=== PATIENT | female | born 1970 | race Caucasian/White ===

== ENCOUNTER 2023-11-21 19:22 | Inpatient (IN) | payer OTHER, SELFPAY ==
--- NOTE | ~2023-11-21 | XR_ITS ---
EXAMINATION: XR CHEST CLINICAL INFORMATION: Shortness of breath and cough COMPARISON: None available. TECHNIQUE: Frontal view of the chest was obtained. FINDINGS: No significant abnormality is noted involving the heart, lungs, mediastinum, bony thorax or soft tissues. XR/XR chest 1V IMPRESSION: Unremarkable examination. Electronically signed by: Lewis Johnson MD 11/21/2023 09:39 PM EDT RP
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
--- NOTE | 2023-11-21 19:37 | ECG_ITS ---
Test Reason : SOB Blood Pressure : / mmHG Vent. Rate : 091 BPM Atrial Rate : 091 BPM P-R Int : 140 ms QRS Dur : 072 ms QT Int : 360 ms P-R-T Axes : 073 037 041 degrees QTc Int : 442 ms Normal sinus rhythm Possible Left atrial enlargement Borderline ECG No previous ECGs available Referred By: Juhi Gamez Electronically Signed By:AIMEE VEGA
[2023-11-21 19:39] VITALS: BP 120/69; PULSE 93; RESP 20; TEMP 36.6; O2SAT 99; BMI 26.1
[2023-11-21 20:03] LABS: MANUAL DIFF FLAG NO
[2023-11-21 20:07] LABS: Basophils Absolute Auto 0.1 X10*3/uL (0.0-0.2); Basophils Percent Auto 0.5 % (0-2); Eosinophils Percent Auto 0.2 % (0-4); Hematocrit 42.5 % (37.0-47.0); Hemoglobin 12.9 g/dl (12.0-16.0); Imm Gran Abs Auto 0.11 X10*3/uL (0.00-0.03); Imm Gran Pct Auto 0.9 % (0.0-0.4); Lymphocytes Absolute Auto 1.9 X10*3/uL (1.2-4.9); Lymphocytes Percent Auto 15.7 % (20-40); Mean Corpuscular HGB Conc 30.4 g/dl (31.0-35.0); Mean Corpuscular Hemoglobin 26.3 pg (27.0-33.0); Mean Corpuscular Volume 86.6 fL (80.0-98.0); Mean Platelet Volume 9.9 fL (9.4-12.3); Monocytes Absolute Auto 0.6 X10*3/uL (0.1-1.2); Monocytes Percent Auto 5.1 % (2-11); Neutrophils Absolute Auto 9.5 x10*3/uL (2.0-8.3); Neutrophils Percent Auto 77.6 % (45-73); Platelet Count 439 X10*3/uL (160-400); Red Blood Count 4.91 X10*6/uL (4.20-5.50); White Blood Count 12.3 X10*3/uL (4.8-10.8)
[2023-11-21 20:10] LABS: VBG Base Excess -22.1 mmol/L; VBG HCO3 5 mmol/L (22-26); VBG pCO2 14 mmHg; VBG pH 7.11 (7.32-7.43); VBG pO2 87 mmHg
[2023-11-21 20:10] LABS: Venous Blood Gas Refer to POC result
[2023-11-21 20:16] LABS: INTERNATIONAL NORM RATIO 0.8 (0.9-1.1); Prothrombin Time 10.3 SEC (11.1-13.3)
[2023-11-21 20:20] VITALS: PULSE 110; RESP 34; O2SAT 98
[2023-11-21] MEDS: Lactated Ringers 1,000 ML 999 ML IV ×2 (20:20)
[2023-11-21] MEDS: ondansetron HCL 4 MG/2 ML VIAL IVPUSH (20:28)
[2023-11-21 20:33] LABS: Alanine Aminotransferase 46 U/L (0-31); Albumin Level 4.2 g/dL (3.5-5.0); Alkaline Phosphatase 252 U/L (39-117); Anion Gap 28 (12-20); Aspartate Amino Transferase 27 U/L (5-31); Bilirubin Total 0.5 mg/dL (0.0-1.0); Blood Urea Nitrogen 19 mg/dL (9-16); Calcium 9.7 mg/dL (8.4-10.2); Carbon Dioxide 5 mmol/L (22-29); Chloride 100 mmol/L (96-108); Creatinine Clr Calc Pharmacy 49.3; Estimated Glomerular Filt Rate 43; Glucose Random 691 mg/dL (60-115); Lipase 10 U/L (8-78); Potassium 5.8 mmol/L (3.3-5.1); Sodium 127 mmol/L (135-145); Total Protein 8.5 g/dL (6.5-8.0)
[2023-11-21 20:38] LABS: Beta-Hydroxybutyrate 9.02 mmol/L (0.02-0.27)
[2023-11-21] MEDS: Insulin Regular, Human 100 UNIT/ML 10 ML VIAL 10 UNIT IVPUSH (20:40)
[2023-11-21 20:43] LABS: Influenza A PCR NEGATIVE (Negative); Influenza B PCR NEGATIVE (Negative); Resp Syncy Virus RNA Qual PCR NEGATIVE (Negative); SARS COV2 PCR INHOUSE NEGATIVE (Negative)
[2023-11-21] MEDS: Insulin Regular/NS 100 UNIT/100 ML PLAST..BAG 6 UNIT IVCONT (20:46)
--- NOTE | 2023-11-21 20:55 | PC.NURSE ---
pt arrived via [facility] reporting feeling unwell since waking up this morning, states she can tell her sugars were off , presenting with sob, increased work of breathing w/ shallow respirations, diaphoretic, very uncomfortable appearing. Pt states she has short acting ss insulin before meals, along with long acting 2x/day that she is compliant with. today her sugars were high despite giving self insulin and only eating 1 egg. labs revealing pt is in DKA, pH 7.11, carbon dioxide 5, glucose 691, potassium 5.8. #22 g iv in LFA, #20g iv LAC, 2L LR bolus running, 4 mg zofran for vomiting, 10units insulin regular iv push administered, and insulin drip started at 18:46 @7u/hr per ICU LISSETTE gar. pt on monitoring manager blood cultures and lactic being obtained now by PCT
[2023-11-21 20:57] LABS: Glucose, Whole Blood > 600 mg/dL (60-115)
[2023-11-21 20:57] LABS: Glucose, Whole Blood > 600 mg/dL (60-115)
--- NOTE | 2023-11-21 21:17 | PM.CCHP ---
History of Present Illness Date of Service: 11/21/23 Attending physician on admission: Roberto Carlos Gutiérrez Chief Complaint: DKA HPI: ?53-year-old female with underlying history of breast cancer status post bilateral lumpectomy in 1999, Graves disease, type I DM with recurrent DKA episodes approximately once every 2-3 months with unknown reasons of it.? Patient states that she is compliant with medication but often times her blood sugars will go out of order despite of her using her Lantus twice per day as well as an ISS. Patient presented to the emergency room with generalized malaise, nausea and a few episodes of vomiting with the epigastric abdominal discomfort which is often the same way that he presents when her sugars are abnormal.? Pain is described as dull and nagging 5/10, localized without radiation, she has not take any medications to help but and nothing makes it better or worse. ?In fact she check her sugar at home and was very high unreadable therefore she came to the emergency room. She denies any shortness of breath, cough, sputum production, fever, chills, dysuria, hematuria, diarrhea, recent traveling or COVID contacts. ER workup revealed tachycardia and tachypnea but otherwise normotensive and not hypoxic, afebrile, her lab work shows white count 12.3, H and H of 12.9 and 42 respectively, platelets 439, sodium 127, potassium 5.8, chloride 100, carbon dioxide 5, anion gap 28, BUN 19, creatinine 1.29, random glucose 691, beta hydroxybutyrate acid 9.02.? SAT and ALT 27 and 46 respectively, lipase 10.? Respiratory panel negative.? Urinalysis and chest x-ray are pending.? Patient has been given 2 L of IV fluids, a single IV bolus of insulin and is about to start insulin drip. Patient will be transferred to the ICU for further management. Review of Systems Review of Systems: Review of systems: As above, otherwise the patient denies any prior history of strokes, migraine headaches, head trauma, no eyes, ears or nose problems, no problems swallowing or with phonation, denies any history of chest pain, palpitations, coronary disease, cough, sputum production, pneumonia, bronchitis, COPD or emphysema, kidney stones, liver problems, no history of DVT or PE, leg edema, fractures or extremity surgeries all other review of systems were reviewed and they were all negative. [facility] Social History Social History Household Members: None Housing: House Do you presently have visiting nurse or other home services: No Patient Tobacco Use Status: Current everyday Tobacco user Tobacco use type: Cigarette Smoked in Last 30 Days: Yes Patient Interested in Nicotine Replacement: Yes Patient Given Instructions on How to Stop Smoking: No (Refused) Use of substances other than those prescribed or required for medical reasons: No Currently Displaying Signs/Symptoms of Drug Intoxication Withdrawal: No Have you been hit, kicked, punched, or otherwise hurt by someone within the past year? If so, by whom?: No Do you feel safe in your current relationship?: No Current Relationship Jainism Healthcare Practices: Hindu Advance Directives: No Advance Directives Information Provided: Yes Do you have a plan to hurt others: No Plan Recently lost weight without trying: No Nutrition Risks: Diabetes new onset/Uncontrolled Patient : No Travel History Ebola Risk: Travel/Contact With Anyone From Affected Area/s: No Meds Allergies Allergy/AdvReac Type Severity Reaction Status Date / Time aspirin Allergy Vomiting Verified 11/21/23 19:40 Active Medications: Current Medications Enoxaparin Sodium (Enoxaparin Sodium 40 Mg/0.4 Ml Syringe) 40 mg SUBCUT DAILY [facility] Insulin Human Regular (Myxredlin) 100 unit in 100 mls @ 6 mls/hr IVCONT .[id number] [facility]; Protocol Last Admin: 11/21/23 20:46 Dose: 6 unit/hr, 6 mls/hr Dextrose (D10) 250 mls @ 750 mls/hr IV Q30M PRN PRN Reason: BG <70 Lactated Ringer's (Lr) 1,000 mls @ 150 mls/hr IVCONT .Q6H40M [facility] Pantoprazole Sodium (Pantoprazole Sodium 40 Mg/10 Ml Vial) 40 mg IVPUSH DAILY [facility] Home Medications ?Medication ?Instructions ?Recorded ?Confirmed ?Last Taken ?Type insulin aspart U-100 100 unit/mL 0 - 18 sliding scale dose subcut 11/22/23 11/22/23 11/22/23 History (3 mL) subcutaneous pen (Novolog QID PRN suger FlexPen U-100 Insulin aspart) insulin glargine 100 unit/mL (3 22 unit subcut BID 11/22/23 11/22/23 Unknown History mL) subcutaneous pen (Lantus Solostar U-100 Insulin) letrozole 2.5 mg tablet 2.5 mg PO DAILY 11/22/23 11/22/23 11/22/23 History methimazole 10 mg tablet 20 mg PO BID 11/22/23 11/22/23 11/21/23 History omeprazole 20 mg capsule,delayed 20 mg PO DAILY@0630 11/22/23 11/22/23 11/21/23 History release propranolol 40 mg tablet 20 mg PO TID 11/22/23 11/22/23 11/22/23 History Physical Exam Vital Signs: Vital Signs: Last Vital Signs Temp 98 F 11/21/23 19:39 Pulse 110 H 11/21/23 20:20 Resp 34 H 11/21/23 20:20 BP 120/69 11/21/23 19:39 Pulse Ox 98 11/21/23 20:20 O2 Del Method Room Air 11/21/23 20:20 BMI result Body Mass Index 26.1 VS: ?120/69, 110, 34, 98% on room air, temperature 98.0 degrees F. General:? Alert oriented x3 no acute distress.? Speaking full sentences.? Speech is well articulated, thought process is coherent.? Following all commands. Skin:? Intact, no lesions, edema, erythema, clubbing or cyanosis.? No ulcers. HEENT:? Head is normocephalic, atraumatic, pupils equal round reactive to light .Buccal mucosa is dry, Neck is supple without lymphadenopathy. Cardiac:? Tachycardic 110 beats per minute.? No murmurs, rubs, gallops. Pulmonary:? Clear to auscultation, no wheezes, rales or rhonchi. Abdomen:? Protuberant, positive bowel sounds in all 4 quadrants.? Soft, nontender, no rebound or guarding.? Musculoskeletal:? Moving all 4 extremities upon request a major joints, there is no crepitus or tenderness.? The strength is 5/5 bilaterally and throughout all 4 extremities.? There is no leg edema , no calf tenderness , no leg asymmetry.? Gait not assessed at this point. Neurologic:? As above. No focal deficits noted. Vascular:? 2+ pulses upper and lower extremities distally. Results Labs 11/22/23 05:13 11/22/23 10:40 Labs: Laboratory Results - last 24 hr 11/21/23 11/21/23 11/21/23 19:36 19:38 19:52 MCV 86.6 MCH 26.3 L MCHC 30.4 L RDW 17.0 H Plt Count 439 H MPV 9.9 Immature Gran % (Auto) 0.9 H Neut % (Auto) 77.6 H Lymph % (Auto) 15.7 L Hancock % (Auto) 5.1 Eos % (Auto) 0.2 Baso % (Auto) 0.5 Lymph # (Auto) 1.9 Hancock # (Auto) 0.6 Eos # (Auto) 0.0 Baso # (Auto) 0.1 Abs Immat Gran (auto) 0.11 H Absolute Neuts (auto) 9.5 H Absolute Nucleated RBC 0.000 Nucleated RBC % (auto) 0.0 PT 10.3 L INR 0.8 L VBG pH VBG pCO2 VBG pO2 VBG HCO3 VBG O2 Saturation VBG Base Excess Anion Gap 28 H Estim Creat Clear Calc 49.3 Estimated GFR 43 POC Glucose > 600 H* > 600 H* Random Glucose 691 H* Lactic Acid 1.0 Calcium 9.7 Magnesium 2.0 Total Bilirubin 0.5 AST 27 ALT 46 H Alkaline Phosphatase 252 H Total Protein 8.5 H Albumin 4.2 Lipase 10 Beta-Hydroxybutyrate 9.02 H Influenza Type A (PCR) NEGATIVE Influenza Type B (PCR) NEGATIVE RSV RNA Qual (PCR) NEGATIVE SARS-CoV-2 RNA (RT-PCR) NEGATIVE 11/21/23 20:03 MCV MCH MCHC RDW Plt Count MPV Immature Gran % (Auto) Neut % (Auto) Lymph % (Auto) Hancock % (Auto) Eos % (Auto) Baso % (Auto) Lymph # (Auto) Hancock # (Auto) Eos # (Auto) Baso # (Auto) Abs Immat Gran (auto) Absolute Neuts (auto) Absolute Nucleated RBC Nucleated RBC % (auto) PT INR VBG pH 7.11 L* VBG pCO2 14 VBG pO2 87 VBG HCO3 5 L VBG O2 Saturation 93.0 VBG Base Excess -22.1 Anion Gap Estim Creat Clear Calc Estimated GFR POC Glucose Random Glucose Lactic Acid Calcium Magnesium Total Bilirubin AST ALT Alkaline Phosphatase Total Protein Albumin Lipase Beta-Hydroxybutyrate Influenza Type A (PCR) Influenza Type B (PCR) RSV RNA Qual (PCR) SARS-CoV-2 RNA (RT-PCR) ECG Attestation: I personally reviewed and interpreted this ECG as follows: (EKG interpretation to my view shows sinus rhythm rate of 91 beats per minute. There is no ST elevations, no ST depressions. QTC 442 MS. No comparison available.) Imaging Comment: Chest x-ray impression To my view there is no bony abnormalities.? Trachea is midline.? Cardiac silhouette appears normal.? Both diaphragmatic angles are visualized without evidence of effusion, no infiltrates.? Final reading by radiologist is pending. Assessment and Plan (1) Diabetic keto-acidosis: Qualifiers: Diabetes mellitus complication detail: without coma Diabetes mellitus type: type 1 Qualified Code(s): E10.10 - Type 1 diabetes mellitus with ketoacidosis without coma Status: Acute Plan ASSESSMENT : 1. Acute DKA 2. Acute metabolic acidosis due to the above 3. Pseudo hyponatremia 4. Pseudo hyperkalemia 5. Reactive tachycardia and tachypnea 6. Reactive thrombocytosis 7. Clinical dehydration PLAN OF CARE: Patient will be transferred to the ICU, monitor I's and O's, vital signs, continue with insulin drip at 0.1 units/kilogram per hour, adjust insulin according to blood sugars, continue with LR infusion, change IV fluids to D5 LR when blood sugars less than 250, check POC is every 1 hour, chemistries every 4 hours and replace electrolytes as needed particularly potassium.? Repeat laboratories in the morning.? As soon as the gap closes, we will discontinue the insulin drip and proceed to place her on her regular long-acting insulin. GI PROPHYLAXIS: ?IV PPI DVT PROPHYLAXIS: ?Lovenox subQ Critical care time used for critical evaluation of this patient, diagnosis, treatment and coordination of care, review her records and documentation TOTAL CRITICAL CARE TIME?75?MIN . discussion and coordination with consultants, completely separate from any procedures performed. Patient's care was discussed in detail with Dr. Gutiérrez who is aware of all the above as well as the plan of care for this patient.
[2023-11-21 21:44] LABS: Appearance Urine Clear; Color Urine Yellow; Glucose Urine UA >=1000 mg/dL (Negative); Leukocyte Esterase Urine Negative (Negative); Nitrite Urine Negative (Negative); PH 5.5 (5.0-9.0); Specific Gravity - Urine 1.025 (1.005-1.025); UMIC TRIGGER UACC YES; Urine Blood Negative (Negative); Urine Ketones >=160 mg/dL (Negative); Urine Protein 30 (1+) mg/dL (Neg-Trace)
[2023-11-21 21:49] LABS: Bacteria Urine None Seen (None Seen); RBC Urine 0-2 /HPF (0-2); Squamous Epithelial Cell Urine 0-2 /HPF (0-2); WBC Urine 0-5 /HPF (0-5)
[2023-11-21 21:53] LABS: Glucose, Whole Blood 492 mg/dL (60-115)
[2023-11-21 22:04] VITALS: BP 137/69; PULSE 91; RESP 18; TEMP 36.6; O2SAT 100
[2023-11-21 22:11] LABS: Anion Gap 25 (12-20); Blood Urea Nitrogen 18 mg/dL (9-16); Calcium 9.7 mg/dL (8.4-10.2); Carbon Dioxide 7 mmol/L (22-29); Chloride 105 mmol/L (96-108); Creatinine Clr Calc Pharmacy 53.9; Estimated Glomerular Filt Rate 48; Glucose Random 543 mg/dL (60-115); Potassium 5.5 mmol/L (3.3-5.1); Sodium 131 mmol/L (135-145)
--- NOTE | 2023-11-21 22:11 | PC.NURSE ---
per insulin drip protocol repeat poc after 1 hr of infusion came back at 492 drop was > 100 within 1 hr and therefore supposed to reduce infusion rate by 50% however per ED MD continue running at 7ml/hr until glucose is under 200 - also verified with Jeovany MCLAUGHLIN and APPRENTICE CARPENTER when giving report on phone insulin drip continues at 7u/hr pt to go to ICU momentarily
[2023-11-21 22:43] VITALS: TEMP 36.5
[2023-11-21 22:44] LABS: Glucose, Whole Blood 485 mg/dL (60-115)
[2023-11-21 23:00] VITALS: BP 153/73; PULSE 97; RESP 19; O2SAT 100
[2023-11-21 23:08] LABS: Glucose, Whole Blood 492 mg/dL (60-115)
[2023-11-21 23:20] VITALS: BMI 26.5
[2023-11-21] MEDS: Lactated Ringers 1,000 ML 150 ML IVCONT (23:48)
[2023-11-21 23:53] LABS: Glucose, Whole Blood 379 mg/dL (60-115)
[2023-11-22] VITALS (16 sets, daily range): BP systolic 100–137; BP diastolic 59–79; PULSE 72–95; RESP 14–19; TEMP 36.1–36.9; O2SAT 96–99
--- NOTE | 2023-11-22 00:41 | PC.NURSE ---
PER ICU PA TO START D5LR WHEN GLUCOSE <250
[2023-11-22] MEDS: Sodium Bicarbonate 8.4% 50 MEQ/50 ML SYRINGE IVPUSH ×2 (00:51→06:37)
[2023-11-22 00:58] LABS: Alanine Aminotransferase 45 U/L (0-31); Albumin Level 3.8 g/dL (3.5-5.0); Alkaline Phosphatase 231 U/L (39-117); Anion Gap 23 (12-20); Aspartate Amino Transferase 30 U/L (5-31); Bilirubin Total 0.3 mg/dL (0.0-1.0); Blood Urea Nitrogen 16 mg/dL (9-16); Calcium 9.1 mg/dL (8.4-10.2); Carbon Dioxide 7 mmol/L (22-29); Chloride 110 mmol/L (96-108); Estimated Glomerular Filt Rate 46; Glucose Random 301 mg/dL (60-115); Potassium 4.7 mmol/L (3.3-5.1); Sodium 135 mmol/L (135-145); Total Protein 7.4 g/dL (6.5-8.0)
[2023-11-22] MEDS: Dextrose 5 % and Lactated Ring 1,000 ML 100 ML IVCONT (00:58)
[2023-11-22 01:27] LABS: Glucose, Whole Blood 191 mg/dL (60-115)
[2023-11-22 01:50] LABS: Glucose, Whole Blood 173 mg/dL (60-115)
[2023-11-22 02:55] LABS: Glucose, Whole Blood 142 mg/dL (60-115)
[2023-11-22 03:56] LABS: Glucose, Whole Blood 122 mg/dL (60-115)
[2023-11-22 04:57] LABS: Glucose, Whole Blood 117 mg/dL (60-115)
[2023-11-22 05:22] LABS: VBG Base Excess -11.6 mmol/L; VBG HCO3 11 mmol/L (22-26); VBG pCO2 19 mmHg; VBG pH 7.36 (7.32-7.43); VBG pO2 50 mmHg
[2023-11-22 05:24] LABS: Venous Blood Gas Refer to POC result
[2023-11-22 05:41] LABS: MANUAL DIFF FLAG NO
[2023-11-22 05:43] LABS: Basophils Absolute Auto 0.1 X10*3/uL (0.0-0.2); Basophils Percent Auto 0.4 % (0-2); Eosinophils Percent Auto 0.1 % (0-4); Hematocrit 35.2 % (37.0-47.0); Imm Gran Abs Auto 0.09 X10*3/uL (0.00-0.03); Imm Gran Pct Auto 0.7 % (0.0-0.4); Lymphocytes Absolute Auto 2.2 X10*3/uL (1.2-4.9); Lymphocytes Percent Auto 17.6 % (20-40); Mean Corpuscular HGB Conc 31.3 g/dl (31.0-35.0); Mean Corpuscular Hemoglobin 26.3 pg (27.0-33.0); Mean Platelet Volume 9.8 fL (9.4-12.3); Monocytes Percent Auto 7.8 % (2-11); Neutrophils Absolute Auto 9.1 x10*3/uL (2.0-8.3); Neutrophils Percent Auto 73.4 % (45-73); Platelet Count 344 X10*3/uL (160-400); Red Blood Count 4.19 X10*6/uL (4.20-5.50); Red Cell Distribution Width 16.5 % (11.0-16.0); White Blood Count 12.4 X10*3/uL (4.8-10.8)
[2023-11-22] MEDS: Pantoprazole Sodium 40 MG/10 ML VIAL IVPUSH (06:00)
[2023-11-22 06:06] LABS: Glucose, Whole Blood 157 mg/dL (60-115)
[2023-11-22 06:21] LABS: Alanine Aminotransferase 36 U/L (0-31); Albumin Level 3.5 g/dL (3.5-5.0); Alkaline Phosphatase 196 U/L (39-117); Anion Gap 19 (12-20); Aspartate Amino Transferase 24 U/L (5-31); Bilirubin Total 0.5 mg/dL (0.0-1.0); Blood Urea Nitrogen 13 mg/dL (9-16); Calcium 8.7 mg/dL (8.4-10.2); Carbon Dioxide 12 mmol/L (22-29); Chloride 109 mmol/L (96-108); Creatinine Clr Calc Pharmacy 69.5; Estimated Glomerular Filt Rate > 60; Glucose Random 147 mg/dL (60-115); Magnesium 1.7 mg/dL (1.6-2.6); Phosphorus 2.8 mg/dL (2.7-4.5); Potassium 4.2 mmol/L (3.3-5.1); Sodium 136 mmol/L (135-145); Total Protein 6.8 g/dL (6.5-8.0)
[2023-11-22] MEDS: Insulin Glargine,Hum.rec.anlog 100 UNIT/ML 10 ML VIAL 22 UNIT SUBCUT ×2 (06:36→18:36)
[2023-11-22 07:07] LABS: Glucose, Whole Blood 126 mg/dL (60-115)
[2023-11-22 08:01] LABS: Glucose, Whole Blood 131 mg/dL (60-115)
[2023-11-22] MEDS: Enoxaparin Sodium 40 MG/0.4 ML SYRINGE SUBCUT (10:14)
[2023-11-22] MEDS: Nicotine 14 MG PATCH.TD24 TRANSDERMA (10:15)
[2023-11-22 11:03] LABS: Estimated Average Glucose 272 mg/dL; Hemoglobin A1c % 11.1 % (<6.0)
[2023-11-22 11:10] LABS: Glucose, Whole Blood 197 mg/dL (60-115)
[2023-11-22 11:12] LABS: Anion Gap 16 (12-20); Blood Urea Nitrogen 13 mg/dL (9-16); Calcium 8.5 mg/dL (8.4-10.2); Carbon Dioxide 17 mmol/L (22-29); Chloride 107 mmol/L (96-108); Creatinine Clr Calc Pharmacy 71.1; Estimated Glomerular Filt Rate > 60; Glucose Random 200 mg/dL (60-115); Potassium 3.9 mmol/L (3.3-5.1); Sodium 136 mmol/L (135-145)
--- NOTE | 2023-11-22 11:43 | PHA.MEDREC ---
Addendum entered by Lea Pedroza RPh 11/22/23 12:04: reviewed by [facility]. Original Note: Pharmacy Consult ? Medication Reconciliation Pharmacy has completed the medication reconciliation. Spoke to patient to confirm med list. Patient stats Novolog is 0-18 units 3-4 times daily per sliding scale, Lantus is 22 units bid.
--- NOTE | 2023-11-22 11:48 | PM.CCPN ---
Subjective Subjective Date of Service: 11/22/23 Critical Care Time (minutes): 35 Comment: 53-year-old lady with past medical history of diabetes mellitus with multiple admissions in the past for DKA is admitted to the hospital for the management of DKA last night. She was started on insulin drip and this morning her gap closed. Acidosis improved, insulin drip has been stopped and switched to long-acting insulin. Physical Exam Vital Signs: Vital Signs: Last Vital Signs Temp 98.4 F 11/22/23 08:00 Pulse 83 11/22/23 11:00 Resp 16 11/22/23 11:00 BP 114/62 11/22/23 11:00 Pulse Ox 97 11/22/23 11:00 O2 Del Method Room Air 11/22/23 11:00 BMI result Body Mass Index 26.5 General: Not in any acute distress, sleeping this morning Nutritional Appearance: well nourished and overweight Eyes: appearance normal, both eyes and all related structures; Alignment and Position: alignment normal and position normal Neck: No lymphadenopathy, no thyromegaly Resp: bilateral air entry equal, occasional added sounds present Cardio: Regular rate, regular rhythm; Heart sounds: S1 normal heart sound present and S2 normal heart sound present GI: soft, nontender, no guarding, no hepatosplenomegaly : bladder normal to inspection, bladder normal to palpation, no renal angle tenderness Skin: no rashes or lesions noted and elasticity normal Neuro: oriented to person, oriented to place, oriented to time and moves all extremities Objective Data Labs 11/22/23 05:13 11/22/23 10:40 Labs: Laboratory Results - last 24 hr 11/21/23 11/21/23 11/21/23 19:36 19:38 19:52 WBC 12.3 H RBC 4.91 Hgb 12.9 Hct 42.5 MCV 86.6 MCH 26.3 L MCHC 30.4 L RDW 17.0 H Plt Count 439 H MPV 9.9 Immature Gran % (Auto) 0.9 H Neut % (Auto) 77.6 H Lymph % (Auto) 15.7 L [place] % (Auto) 5.1 Eos % (Auto) 0.2 Baso % (Auto) 0.5 Lymph # (Auto) 1.9 Finney # (Auto) 0.6 Eos # (Auto) 0.0 Baso # (Auto) 0.1 Abs Immat Gran (auto) 0.11 H Absolute Neuts (auto) 9.5 H Absolute Nucleated RBC 0.000 Nucleated RBC % (auto) 0.0 PT 10.3 L INR 0.8 L VBG pH VBG pCO2 VBG pO2 VBG HCO3 VBG O2 Saturation VBG Base Excess Sodium 127 L Potassium 5.8 H Chloride 100 Carbon Dioxide 5 L* Anion Gap 28 H BUN 19 H Creatinine 1.29 Estim Creat Clear Calc 49.3 Estimated GFR 43 POC Glucose > 600 H* > 600 H* Random Glucose 691 H* Estimat Average Glucose Hemoglobin A1c % Lactic Acid 1.0 Calcium 9.7 Phosphorus Magnesium 2.0 Total Bilirubin 0.5 AST 27 ALT 46 H Alkaline Phosphatase 252 H Total Protein 8.5 H Albumin 4.2 Lipase 10 Beta-Hydroxybutyrate 9.02 H Urine Color Urine Appearance Urine pH Ur Specific [place] Urine Protein Urine Glucose (UA) Urine Ketones Urine Blood Urine Nitrite Ur Leukocyte Esterase Urine RBC Urine WBC Ur Squamous Epith Cells Urine Bacteria Hyaline Casts Influenza Type A (PCR) NEGATIVE Influenza Type B (PCR) NEGATIVE RSV RNA Qual (PCR) NEGATIVE SARS-CoV-2 RNA (RT-PCR) NEGATIVE 11/21/23 11/21/23 11/21/23 20:03 21:11 21:33 WBC RBC Hgb Hct MCV MCH MCHC RDW Plt Count MPV Immature Gran % (Auto) Neut % (Auto) Lymph % (Auto) [place] % (Auto) Eos % (Auto) Baso % (Auto) Lymph # (Auto) [place] # (Auto) Eos # (Auto) Baso # (Auto) Abs Immat Gran (auto) Absolute Neuts (auto) Absolute Nucleated RBC Nucleated RBC % (auto) PT INR VBG pH 7.11 L* VBG pCO2 14 VBG pO2 87 VBG HCO3 5 L VBG O2 Saturation 93.0 VBG Base Excess -22.1 Sodium Potassium Chloride Carbon Dioxide Anion Gap BUN Creatinine Estim Creat Clear Calc Estimated GFR POC Glucose Random Glucose Estimat Average Glucose Hemoglobin A1c % Lactic Acid 2.0 Calcium Phosphorus Magnesium Total Bilirubin AST ALT Alkaline Phosphatase Total Protein Albumin Lipase Beta-Hydroxybutyrate Urine Color Yellow Urine Appearance Clear Urine pH 5.5 Ur Specific [place] 1.025 Urine Protein 30 (1+) H Urine Glucose (UA) >=1000 H Urine Ketones >=160 Urine Blood Negative Urine Nitrite Negative Ur Leukocyte Esterase Negative Urine RBC 0-2 Urine WBC 0-5 Ur Squamous Epith Cells 0-2 Urine Bacteria None Seen Hyaline Casts 3-5 Influenza Type A (PCR) Influenza Type B (PCR) RSV RNA Qual (PCR) SARS-CoV-2 RNA (RT-PCR) 11/21/23 11/21/23 11/21/23 21:45 21:48 22:36 WBC RBC Hgb Hct MCV MCH MCHC RDW Plt Count MPV Immature Gran % (Auto) Neut % (Auto) Lymph % (Auto) [place] % (Auto) Eos % (Auto) Baso % (Auto) Lymph # (Auto) [place] # (Auto) Eos # (Auto) Baso # (Auto) Abs Immat Gran (auto) Absolute Neuts (auto) Absolute Nucleated RBC Nucleated RBC % (auto) PT INR VBG pH VBG pCO2 VBG pO2 VBG HCO3 VBG O2 Saturation VBG Base Excess Sodium 131 L Potassium 5.5 H Chloride 105 Carbon Dioxide 7 L* D Anion Gap 25 H BUN 18 H Creatinine 1.18 Estim Creat Clear Calc 53.9 Estimated GFR 48 POC Glucose 492 H* 485 H* Random Glucose 543 H* Estimat Average Glucose Hemoglobin A1c % Lactic Acid Calcium 9.7 Phosphorus Magnesium Total Bilirubin AST ALT Alkaline Phosphatase Total Protein Albumin Lipase Beta-Hydroxybutyrate Urine Color Urine Appearance Urine pH Ur Specific [place] Urine Protein Urine Glucose (UA) Urine Ketones Urine Blood Urine Nitrite Ur Leukocyte Esterase Urine RBC Urine WBC Ur Squamous Epith Cells Urine Bacteria Hyaline Casts Influenza Type A (PCR) Influenza Type B (PCR) RSV RNA Qual (PCR) SARS-CoV-2 RNA (RT-PCR) 11/21/23 11/21/23 11/22/23 23:03 23:48 00:28 WBC RBC Hgb Hct MCV MCH MCHC RDW Plt Count MPV Immature Gran % (Auto) Neut % (Auto) Lymph % (Auto) [place] % (Auto) Eos % (Auto) Baso % (Auto) Lymph # (Auto) [place] # (Auto) Eos # (Auto) Baso # (Auto) Abs Immat Gran (auto) Absolute Neuts (auto) Absolute Nucleated RBC Nucleated RBC % (auto) PT INR VBG pH VBG pCO2 VBG pO2 VBG HCO3 VBG O2 Saturation VBG Base Excess Sodium 135 Potassium 4.7 Chloride 110 H Carbon Dioxide 7 L* Anion Gap 23 H BUN 16 Creatinine 1.23 Estim Creat Clear Calc 52.0 Estimated GFR 46 POC Glucose 492 H* 379 H* Random Glucose 301 H Estimat Average Glucose Hemoglobin A1c % Lactic Acid Calcium 9.1 D Phosphorus Magnesium Total Bilirubin 0.3 AST 30 ALT 45 H Alkaline Phosphatase 231 H Total Protein 7.4 Albumin 3.8 Lipase Beta-Hydroxybutyrate Urine Color Urine Appearance Urine pH Ur Specific [place] Urine Protein Urine Glucose (UA) Urine Ketones Urine Blood Urine Nitrite Ur Leukocyte Esterase Urine RBC Urine WBC Ur Squamous Epith Cells Urine Bacteria Hyaline Casts Influenza Type A (PCR) Influenza Type B (PCR) RSV RNA Qual (PCR) SARS-CoV-2 RNA (RT-PCR) 11/22/23 11/22/23 11/22/23 00:52 01:46 02:51 WBC RBC Hgb Hct MCV MCH MCHC RDW Plt Count MPV Immature Gran % (Auto) Neut % (Auto) Lymph % (Auto) [place] % (Auto) Eos % (Auto) Baso % (Auto) Lymph # (Auto) [place] # (Auto) Eos # (Auto) Baso # (Auto) Abs Immat Gran (auto) Absolute Neuts (auto) Absolute Nucleated RBC Nucleated RBC % (auto) PT INR VBG pH VBG pCO2 VBG pO2 VBG HCO3 VBG O2 Saturation VBG Base Excess Sodium Potassium Chloride Carbon Dioxide Anion Gap BUN Creatinine Estim Creat Clear Calc Estimated GFR POC Glucose 191 H 173 H 142 H Random Glucose Estimat Average Glucose Hemoglobin A1c % Lactic Acid Calcium Phosphorus Magnesium Total Bilirubin AST ALT Alkaline Phosphatase Total Protein Albumin Lipase Beta-Hydroxybutyrate Urine Color Urine Appearance Urine pH Ur Specific [place] Urine Protein Urine Glucose (UA) Urine Ketones Urine Blood Urine Nitrite Ur Leukocyte Esterase Urine RBC Urine WBC Ur Squamous Epith Cells Urine Bacteria Hyaline Casts Influenza Type A (PCR) Influenza Type B (PCR) RSV RNA Qual (PCR) SARS-CoV-2 RNA (RT-PCR) 11/22/23 11/22/23 11/22/23 03:52 04:53 05:13 WBC 12.4 H RBC 4.19 L Hgb 11.0 L Hct 35.2 L MCV 84.0 MCH 26.3 L MCHC 31.3 RDW 16.5 H Plt Count 344 MPV 9.8 Immature Gran % (Auto) 0.7 H Neut % (Auto) 73.4 H Lymph % (Auto) 17.6 L [place] % (Auto) 7.8 Eos % (Auto) 0.1 Baso % (Auto) 0.4 Lymph # (Auto) 2.2 [place] # (Auto) 1.0 Eos # (Auto) 0.0 Baso # (Auto) 0.1 Abs Immat Gran (auto) 0.09 H Absolute Neuts (auto) 9.1 H Absolute Nucleated RBC 0.000 Nucleated RBC % (auto) 0.0 PT INR VBG pH 7.36 VBG pCO2 19 VBG pO2 50 VBG HCO3 11 L VBG O2 Saturation 85.0 VBG Base Excess -11.6 Sodium 136 Potassium 4.2 Chloride 109 H Carbon Dioxide 12 L Anion Gap 19 BUN 13 Creatinine 0.92 Estim Creat Clear Calc 69.5 Estimated GFR > 60 POC Glucose 122 H 117 H Random Glucose 147 H Estimat Average Glucose Hemoglobin A1c % Lactic Acid Calcium 8.7 Phosphorus 2.8 Magnesium 1.7 Total Bilirubin 0.5 AST 24 ALT 36 H Alkaline Phosphatase 196 H Total Protein 6.8 Albumin 3.5 Lipase Beta-Hydroxybutyrate Urine Color Urine Appearance Urine pH Ur Specific [place] Urine Protein Urine Glucose (UA) Urine Ketones Urine Blood Urine Nitrite Ur Leukocyte Esterase Urine RBC Urine WBC Ur Squamous Epith Cells Urine Bacteria Hyaline Casts Influenza Type A (PCR) Influenza Type B (PCR) RSV RNA Qual (PCR) SARS-CoV-2 RNA (RT-PCR) 11/22/23 11/22/23 11/22/23 05:59 07:03 07:57 WBC RBC Hgb Hct MCV MCH MCHC RDW Plt Count MPV Immature Gran % (Auto) Neut % (Auto) Lymph % (Auto) [place] % (Auto) Eos % (Auto) Baso % (Auto) Lymph # (Auto) [place] # (Auto) Eos # (Auto) Baso # (Auto) Abs Immat Gran (auto) Absolute Neuts (auto) Absolute Nucleated RBC Nucleated RBC % (auto) PT INR VBG pH VBG pCO2 VBG pO2 VBG HCO3 VBG O2 Saturation VBG Base Excess Sodium Potassium Chloride Carbon Dioxide Anion Gap BUN Creatinine Estim Creat Clear Calc Estimated GFR POC Glucose 157 H 126 H 131 H Random Glucose Estimat Average Glucose Hemoglobin A1c % Lactic Acid Calcium Phosphorus Magnesium Total Bilirubin AST ALT Alkaline Phosphatase Total Protein Albumin Lipase Beta-Hydroxybutyrate Urine Color Urine Appearance Urine pH Ur Specific [place] Urine Protein Urine Glucose (UA) Urine Ketones Urine Blood Urine Nitrite Ur Leukocyte Esterase Urine RBC Urine WBC Ur Squamous Epith Cells Urine Bacteria Hyaline Casts Influenza Type A (PCR) Influenza Type B (PCR) RSV RNA Qual (PCR) SARS-CoV-2 RNA (RT-PCR) 11/22/23 11/22/23 10:40 11:01 WBC RBC Hgb Hct MCV MCH MCHC RDW Plt Count MPV Immature Gran % (Auto) Neut % (Auto) Lymph % (Auto) [place] % (Auto) Eos % (Auto) Baso % (Auto) Lymph # (Auto) [place] # (Auto) Eos # (Auto) Baso # (Auto) Abs Immat Gran (auto) Absolute Neuts (auto) Absolute Nucleated RBC Nucleated RBC % (auto) PT INR VBG pH VBG pCO2 VBG pO2 VBG HCO3 VBG O2 Saturation VBG Base Excess Sodium 136 Potassium 3.9 Chloride 107 Carbon Dioxide 17 L Anion Gap 16 BUN 13 Creatinine 0.90 Estim Creat Clear Calc 71.1 Estimated GFR > 60 POC Glucose 197 H Random Glucose 200 H Estimat Average Glucose 272 Hemoglobin A1c % 11.1 H Lactic Acid Calcium 8.5 Phosphorus Magnesium Total Bilirubin AST ALT Alkaline Phosphatase Total Protein Albumin Lipase Beta-Hydroxybutyrate Urine Color Urine Appearance Urine pH Ur Specific [place] Urine Protein Urine Glucose (UA) Urine Ketones Urine Blood Urine Nitrite Ur Leukocyte Esterase Urine RBC Urine WBC Ur Squamous Epith Cells Urine Bacteria Hyaline Casts Influenza Type A (PCR) Influenza Type B (PCR) RSV RNA Qual (PCR) SARS-CoV-2 RNA (RT-PCR) Progress Note: A&P Assessment and plan (1) Diabetic keto-acidosis: Status: Acute Plan 53-year-old lady with past medical history of diabetes mellitus with multiple admissions in the past for DKA is admitted to the hospital for the management of DKA last night. She was started on insulin drip and this morning her gap closed. Acidosis improved, insulin drip has been stopped and switched to long-acting insulin. Her HbA1c is 11.1 possibly suggesting poor compliance is the cause of DKA. Her home dose of insulin Lantus 22 units b.i.d. has been started, sliding scale insulin as needed has been added. Diabetic diet has been ordered She is okay for transfer to the floor. Prophylaxis: Lovenox, omeprazole Quality Stroke Does the patient have a stroke diagnosis?: No VTE Prior VTE?: No VTE Risk Level:: Medical - moderate - high VTE Device Contraindication: N/A - Device Ordered VTE Drug Contraindication: N/A - Med Ordered
[2023-11-22] MEDS: Insulin Lispro 100 UNIT/ML 3 ML VIAL SUBCUT ×2 (12:18→22:14)
--- NOTE | 2023-11-22 12:54 | PM.EVENT ---
Event Note Date of Service: 11/22/23 Event Note: 53 year old women tx fro DKA in the ICU initially. Tx to hospitalist service for further management Time Spent With Patient Time: Total time managing care of this patient today ____ minutes.
[2023-11-22 16:08] LABS: Glucose, Whole Blood 337 mg/dL (60-115)
[2023-11-22 20:34] LABS: Glucose, Whole Blood 404 mg/dL (60-115)
[2023-11-22 21:37] LABS: Glucose, Whole Blood 324 mg/dL (60-115)
[2023-11-22] MEDS: Acetaminophen 325 MG TABLET 975 MG PO (22:21)
[2023-11-23 04:00] VITALS: BP 105/54; PULSE 69; RESP 18; O2SAT 98
[2023-11-23 07:38] LABS: Glucose, Whole Blood 62 mg/dL (60-115)
[2023-11-23 07:41] VITALS: BP 124/68; PULSE 76; RESP 16; TEMP 36.1; O2SAT 95
[2023-11-23] MEDS: Nicotine 14 MG PATCH.TD24 TRANSDERMA (07:55)
[2023-11-23] MEDS: methIMAzole 10 MG TABLET 20 MG PO (07:55)
[2023-11-23] MEDS: Enoxaparin Sodium 40 MG/0.4 ML SYRINGE SUBCUT (07:55)
[2023-11-23] MEDS: Omeprazole 20 MG CAPSULE.DR PO (07:55)
[2023-11-23 08:13] LABS: Glucose, Whole Blood 98 mg/dL (60-115)
--- NOTE | 2023-11-23 08:16 | MHC.CM.PN ---
CM met with Patient at bedside. Patient lives alone in a house and is functionally independent;Patient cares for her Mother, in [place] every other weekend. Home self care is the goal(car is here) and CM has initiated and will follow for dc planning. PCP is Dr. Rebeka Pineda in [facility].
[2023-11-23 11:00] LABS: Glucose, Whole Blood 249 mg/dL (60-115)
[2023-11-23 11:34] VITALS: BP 107/65; PULSE 81; RESP 20; TEMP 36.4; O2SAT 98
[2023-11-23] MEDS: Insulin Lispro 100 UNIT/ML 3 ML VIAL SUBCUT ×2 (11:40→11:44)
--- NOTE | 2023-11-23 11:48 | P.DS_ITS ---
DS: Providers Provider Date of Service: 11/23/23 Date of admission: 11/21/23 21:02 Primary care physician: Unknown Physician DS: Diagnosis Discharge Diagnosis (1) Diabetic keto-acidosis: Status: Acute DS: Summary Hospital Course Hospital Course: History and physical as per admitting provider. 53-year-old female with underlying history of breast cancer status post bilateral lumpectomy in 1999, Graves disease, type I DM with recurrent DKA episodes approximately once every 2-3 months with unknown reasons of it. Patient states that she is compliant with medication but often times her blood sugars will go out of order despite of her using her Lantus twice per day as well as an ISS. Patient presented to the emergency room with generalized malaise, nausea and a few episodes of vomiting with the epigastric abdominal discomfort which is often the same way that he presents when her sugars are abnormal. Pain is described as dull and nagging 5/10, localized without radiation, she has not take any medications to help but and nothing makes it better or worse. In fact she check her sugar at home and was very high unreadable therefore she came to the emergency room. She denies any shortness of breath, cough, sputum production, fever, chills, dysuria, hematuria, diarrhea, recent traveling or COVID contacts. ER workup revealed tachycardia and tachypnea but otherwise normotensive and not hypoxic, afebrile, her lab work shows white count 12.3, H and H of 12.9 and 42 respectively, platelets 439, sodium 127, potassium 5.8, chloride 100, carbon dioxide 5, anion gap 28, BUN 19, creatinine 1.29, random glucose 691, beta hydroxybutyrate acid 9.02. SAT and ALT 27 and 46 respectively, lipase 10. Respiratory panel negative. Urinalysis and chest x-ray are pending. Patient has been given 2 L of IV fluids, a single IV bolus of insulin and is about to s tart insulin drip. Patient will be transferred to the ICU for further management. 53-year-old woman treated for diabetic ketoacidosis with history of diabetes mellitus type 2. She was initially treated in the ICU on an insulin drip until her anion gap was closed. He did initially have metabolic acidosis secondary to this but improved after insulin drip and IV fluids. She initially had hyperkal emia that resolved with treatment. Her hemoglobin A1c is 11.1. Patient reported that she has a history of a blood sugars going up and down, she reports that she counts carbs and watches her diet at home and is compliant with her sliding scale and Lantus. She should follow-up with her education department chair to discuss ways to better control her diabetes mellitus. Her blood sugars are under control at this time, metabolic acidosis has resolved. She will be discharged home and she is in agreement with this. Graves disease. Continue methimazole GERD. Continue PPI Time Attestation Discharge Coordination Time (in mins): 32 Quality: Safe Use of Opioids Does Pt have an Active Cancer Diagnosis on the Problem List?: No Quality: Stroke Does the patient have a stroke diagnosis?: No Physical Exam Vital Signs: Vital Signs: Last Vital Signs Temp 97.5 F 11/23/23 11:34 Pulse 81 11/23/23 11:34 Resp 20 11/23/23 11:34 BP 107/65 11/23/23 11:34 Pulse Ox 98 11/23/23 11:34 O2 Del Method Room Air 11/23/23 11:34 BMI result Body Mass Index 26.5 Appearing in no acute distress head is normocephalic atraumatic eyes pupils are PERRLA sclera is anicteric mouth throat mucous membranes are intact and moist neck is supple no lymphadenopathy, no JVD noted lung sounds are clear to auscultation heart regular rate rhythm, clear S1, S2 positive bowel sounds, abdomen is soft, nontender neuro patient is alert x3, no focal deficits DS: Data Data Completed and Pending Labs on day of discharge: Laboratory Results - last 24 hr 11/22/23 11/22/23 11/22/23 16:01 20:23 21:33 POC Glucose 337 H 404 H* 324 H 11/23/23 11/23/23 11/23/23 07:30 08:09 10:49 POC Glucose 62 98 249 H Preliminary micro results at discharge 11/21/23 21:45 Blood Culture - Preliminary Blood - Venous No growth after 24 hours. 11/21/23 21:33 Blood Culture - Preliminary Blood - Venous No growth after 24 hours. Discharge Plan Discharge Anticipated Discharge Date/Time: 11/23/23 14:00 Patient Disposition: Home, Self-Care Discharge Diagnosis: Diabetic ketoacidosis Discharge Medications: Continued propranolol 40 mg tablet 20 mg PO TID letrozole 2.5 mg tablet 2.5 mg PO DAILY insulin aspart U-100 [Novolog FlexPen U-100 Insulin] 100 unit/mL (3 mL) insulin pen 0 - 18 sliding scale dose subcut QID PRN (Reason: suger) insulin glargine [Lantus Solostar U-100 Insulin] 100 unit/mL (3 mL) insulin pen 22 unit subcut BID omeprazole 20 mg Capsule,Delayed Release(Dr/Ec) 20 mg PO DAILY@0630 methimazole 10 mg tablet 20 mg PO BID Discharge Orders: Discharge Order (Routine); Ordered 11/23/23 Ordered By: Lizette Don Diet: Diabetic diet Activity on Discharge: As tolerated Stand Alone Forms: Patient Portal Discharge page Print Language: Tamazight Care Plan Goals: Monitor your blood sugars very closely throughout the day to avoid hypo/hyperglycemia Follow a diabetic diet and track your carbohydrates Health Concerns: Diabetic ketoacidosis Plan of Treatment: Follow-up with primary care provider as needed Follow up with the education department chair for better management of your diabetes Take all medications as prescribed Assessment: See discharge summary
--- NOTE | 2023-11-23 14:02 | MHC.CM.PN ---
Patient has been medically cleared for dc to home today, self care.
== END 2023-11-23 14:20 | disposition home or self-care (01) | DRG 639 ==
LOC: HO.ED 21:11 → HO.EDOVER 21:26 → HO.ICU 21:52 → HO.IMC 11-22 12:17
PROVIDERS: Nurse Practitioner Family; Admitting Provider Physician Assistant Medical; Emergency Provider Emergency Medicine Emergency Medical Services; Visit Provider Nurse Practitioner Acute Care
DX: E11.10 Type 2 diabetes mellitus with ketoacidosis without coma (principal); F17.210 Nicotine dependence, cigarettes, uncomplicated; E86.0 Dehydration; D75.838 Other thrombocytosis; Z20.822 Contact with and (suspected) exposure to COVID-19; Z85.3 Personal history of malignant neoplasm of breast; Z71.6 Tobacco abuse counseling; Z79.4 Long term (current) use of insulin; Z79.899 Other long term (current) drug therapy
CPT/HCPCS: 0241U; 36415; 71045; 80048; 80053; 81001; 82010; 82803; 82947; 83036; 83605; 83690; 83735; 84100; 85025; 85610; 87040; 93005; 99285; J1650; J2405; J2470; J7120

== ENCOUNTER → 2023-11-21 21:02 | Outpatient (BNV) | payer OTHER, SELFPAY | PROVIDERS: Admitting Provider Physician Assistant Medical; Emergency Provider Emergency Medicine Emergency Medical Services; Visit Provider Internal Medicine Critical Care Medicine | DX: E10.10 Type 1 diabetes mellitus with ketoacidosis without coma (principal) | CPT/HCPCS: 99291 ==

== ENCOUNTER → 2023-11-21 21:02 | Outpatient (BNV) | payer OTHER, SELFPAY | PROVIDERS: Admitting Provider Physician Assistant Medical; Emergency Provider Emergency Medicine Emergency Medical Services; Visit Provider Nurse Practitioner Acute Care | DX: E10.10 Type 1 diabetes mellitus with ketoacidosis without coma (principal) | CPT/HCPCS: 99239; 99499 ==